=== PATIENT | female | born 1975 | race Hispanic/Latino ===

== ENCOUNTER 2019-01-29 15:07 | Emergency (ER) | payer OTHER ==
--- NOTE | 2019-01-29 16:41 | RAD REPORT ---
EXAM DESCRIPTION: RAD - Ankle Right 3 View - 01/29/2019 4:21 pm CLINICAL HISTORY: Pain;Swelling COMPARISON: <Comparisons> FINDINGS: Moderate soft tissue swelling is seen along the lateral malleolus. No acute fracture or di slocation identified.
--- NOTE | 2019-01-29 16:58 | ER ---
Nurse's Notes [facility] Name: Teresa Eugene Age: 43 yrs Sex: Female : 1975 Arrival Date: 01/29/2019 Time: 15:12 Bed 10 Private MD: Diagnosis: Sprain of unspecified ligament of right ankle Presentation: 01/29 15:21 Presenting complaint: Patient states: tripped while walking down stairs 2 hours ago. Pt ss c/o R ankle and foot pain. Transition of care: patient was not received from another setting of care. Onset of symptoms was January 29, 2019. Risk Assessment: Do you want to hurt yourself or someone else? Patient reports no desire to harm self or others. Initial Sepsis Screen: Does the patient meet any 2 criteria? No. Patient's initial sepsis screen is negative. Does the patient have a suspected source of infection? No. Patient's initial sepsis screen is negative. Care prior to arrival: None. 15:21 Method Of Arrival: Ambulatory ss 15:21 Acuity: MIRI 4 ss Historical: - Allergies: 15:22 No Known Allergies; ss - Home Meds: 15:22 None [Active]; ss - PMHx: 15:22 None; ss - PSHx: 15:22 Appendectomy; ss - Immunization history:: Adult Immunizations unknown. - Social history:: Smoking status: Patient/guardian denies using tobacco. - Ebola Screening: : Patient denies exposure to infectious person Patient denies travel to an Ebola-affected area in the 21 days before illness onset. - Family history:: not pertinent. - Hospitalizations: : No recent hospitalization is reported. Screenin:27 Abuse screen: Denies threats or abuse. Denies injuries from another. Nutritional ss screening: No deficits noted. Tuberculosis screening: Never had TB. Fall Risk None identified. Assessment: 15:30 General: Appears in no apparent distress. comfortable, Behavior is calm, cooperative. ss Pain: Complains of pain in R ankle Pain currently is 5 out of 10 on a pain scale. Quality of pain is described as aching, tender, throbbing, Is continuous. Neuro: Level of Consciousness is awake, alert, obeys commands, Oriented to person, place, time, situation. Cardiovascular: Pulses are palpable in right radial artery, right posterior tibial artery, left radial artery and left posterior tibial artery. Respiratory: Airway is patent Respiratory effort is even, unlabored, Respiratory pattern is regular, symmetrical. GI: No signs and/or symptoms were reported involving the gastrointestinal system. EENT: Oral mucosa is moist. Throat is clear. Derm: Skin Skin is dry. Musculoskeletal: Circulation, motion, and sensation intact. Range of motion: intact in all extremities, Swelling present in R ankle. 17:27 Reassessment: Patient appears in no apparent distress at this time. Patient and/or ss family updated on plan of care and expected duration. Pain level reassessed. Patient is alert, oriented x 3, equal unlabored respirations, skin warm/dry/pink. Vital Signs: 15:22 BP 127 / 79; Pulse 73; Resp 16; Temp 99.0(TE); Pulse Ox 98% on R/A; Weight 65.77 kg; ss Height 5 ft. 1 in. (154.94 cm); Pain 5/10; 15:22 Body Mass Index 27.40 (65.77 kg, 154.94 cm) ED Course: 15:12 Patient arrived in ED. mr 15:22 Triage completed. ss 15:22 Arm band placed on right wrist. ss 15:30 Arnav Ureña MD is Attending Physician. rn 16:21 XRAY Ankle RIGHT 3 view In Process Unspecified. EDIL 17:12 Air stirrup applied to right ankle. 3 17:17 Elizabeth Yee, RN is Primary Nurse. 17:26 No provider procedures requiring assistance completed. Patient did not have IV access ss during this emergency room visit. 17:27 Patient has correct armband on for positive identification. Bed in low position. Call ss light in reach. Administered Medications: No medications were administered Outcome: 16:58 Discharge ordered by . rn 17:26 Discharged to home via wheelchair, with family. ss 17:26 Condition: good 17:26 Discharge instructions given to patient, family, Instructed on discharge instructions, follow up and referral plans. Demonstrated understanding of instructions, follow-up care, medications, splint care. 17:28 Patient left the ED. Signatures: Dispatcher [employer] SERGIOIL BrownKaylan hook mr Arnav Ureña MD MD rn Smirch, Shelby, RN RN Betsy Lay 3
--- NOTE | 2019-01-29 16:58 | EDPHYS ---
Physician Documentation [facility] Name: Teresa Eugene Age: 43 yrs Sex: Female : 1975 Arrival Date: 01/29/2019 Time: 15:12 Bed 10 Private MD: ED Physician Arnav Ureña HPI: 01/29 15:36 This 43 yrs old Female presents to ER via Ambulatory with complaints of Fall rn Injury, Ankle Injury. 15:36 Details of fall: The patient fell from a height, down approximately 4 stairs. Onset: rn The symptoms/episode began/occurred just prior to arrival. Associated injuries: The patient sustained right ankle, swelling. Severity of symptoms: At their worst the symptoms were moderate, in the emergency department the symptoms are unchanged. The patient has not experienced similar symptoms in the past. The patient has not recently seen a physician. Doesn't recall how it happened, was walking down steps in flat sandals, fell, no other injury, reports isolated pain to right lateral ankle.. Historical: - Allergies: 15:22 No Known Allergies; ss - Home Meds: 15:22 None [Active]; ss - PMHx: 15:22 None; ss - PSHx: 15:22 Appendectomy; ss - Immunization history:: Adult Immunizations unknown. - Social history:: Smoking status: Patient/guardian denies using tobacco. - Ebola Screening: : Patient denies exposure to infectious person Patient denies travel to an Ebola-affected area in the 21 days before illness onset. - Family history:: not pertinent. - Hospitalizations: : No recent hospitalization is reported. ROS: 15:36 Constitutional: Negative for fever, chills, and weight loss, MS/Extremity: + injury and rn swelling to right ankle Neuro: Negative for numbness/tingling of foot Exam: 15:36 Constitutional: This is a well developed, well nourished patient who is awake, alert, rn and in no acute distress. MS/ Extremity: Pulses equal, no cyanosis. + tender lateral right malleolus with ecchymosis and swelling, no tenderness at foot or medial malleolus. Vital Signs: 15:22 BP 127 / 79; Pulse 73; Resp 16; Temp 99.0(TE); Pulse Ox 98% on R/A; Weight 65.77 kg; ss Height 5 ft. 1 in. (154.94 cm); Pain 5/10; 15:22 Body Mass Index 27.40 (65.77 kg, 154.94 cm) ss MDM: 15:30 Patient medically screened. rn 16:55 Differential diagnosis: contusion, fracture. rn 16:55 Data reviewed: vital signs, nurses notes, radiologic studies, plain films, and as a rn result, I will discharge patient. Test interpretation: by ED physician or midlevel provider: plain radiologic studies, xray right ankle negative for acute fracture or dislocation.. Counseling: I had a detailed discussion with the patient and/or guardian regarding: the historical points, exam findings, and any diagnostic results supporting the discharge/admit diagnosis, radiology results, the need for outpatient follow up, to return to the emergency department if symptoms worsen or persist or if there are any questions or concerns that arise at home. Response to treatment: the patient's symptoms have mildly improved after treatment, and as a result, I will discharge patient. Special discussion: I discussed with the patient/guardian in detail that at this point there is no indication for admission to the hospital. It is understood, however, that if the symptoms persist or worsen the patient needs to return immediately for re-evaluation. 01/29 15:33 Order name: XRAY Ankle RIGHT 3 view; Complete Time: 16:53 rn 01/29 16:54 Order name: Splint: ankle velcro splint; Complete Time: 17:20 rn Administered Medications: No medications were administered Disposition: 01/29/19 16:58 Discharged to Home. Impression: Sprain of unspecified ligament of right ankle. - Condition is Stable. - Discharge Instructions: Ankle Sprain. - Medication Reconciliation Form, Thank You Letter, Antibiotic Education, Prescription Opioid Use form. - Follow up: Private Physician; When: As needed; Reason: Recheck today's complaints, Re-evaluation by your physician. - Problem is new. - Symptoms have improved. Signatures: Dispatcher [employer] EDMS Arnav Ureña MD MD rn Smirch, Shelby, RN RN ss Corrections: (The following items were deleted from the chart) 17:28 16:58 01/29/2019 16:58 Discharged to Home. Impression: Sprain of unspecified ligament ss of right ankle. Condition is Stable. Forms are Medication Reconciliation Form, Thank You Letter, Antibiotic Education, Prescription Opioid Use. Follow up: Private Physician; When: As needed; Reason: Recheck today's complaints, Re-evaluation by your physician. Problem is new. Symptoms have improved. rn
== END 2019-01-29 17:28 | disposition home or self-care (01) ==
LOC: ER 15:07
DX: S93.401A Sprain of unspecified ligament of right ankle, initial encounter (principal); W10.9XXA Fall (on) (from) unspecified stairs and steps, initial encounter
CPT/HCPCS: 99283

== ENCOUNTER 2019-10-18 16:55 | Emergency (ER) | payer OTHER ==
[2019-10-18] MEDS ORDERED: FLUORESCEIN SODIUM 1 MG/WRAP ONE (18:28)
[2019-10-18] MEDS ORDERED: TETRACAINE HCL 0.5% 4ML OPTH ONE (18:28)
--- NOTE | 2019-10-18 18:38 | ER ---
Nurse's Notes [facility] Name: Teresa Eugene Age: 44 yrs Sex: Female : 1975 Arrival Date: 10/18/2019 Time: 17:00 Bed 17 Private MD: Diagnosis: Conjunctival hemorrhage, right eye Presentation: 10/17 17:07 Chief complaint: Patient states: "I had an eye injury at work yesterday. My lanyard ss flipped up and caught my eye. It doesn't hurt, but it feels irritated.". Coronavirus screen: The patient has NOT traveled to a country currently being monitored by the [facility] within the last 14 days. Proceed with normal triage procedures. The patient has NOT had contact with any known and/or suspected case of coronavirus. Proceed with normal triage procedures. Ebola Screen: Patient denies exposure to infectious person. Patient denies travel to an Ebola-affected area in the 21 days before illness onset. Mechanism of Injury: SEE TRIAGE NOTE. The patient denies any loss of vision. Initial Sepsis Screen: Does the patient meet any 2 criteria? No. Patient's initial sepsis screen is negative. Does the patient have a suspected source of infection? No. Patient's initial sepsis screen is negative. Risk Assessment: Do you want to hurt yourself or someone else? Patient reports no desire to harm self or others. 17:07 Method Of Arrival: Ambulatory ss 17:07 Acuity: MIRI 4 ss Historical: - Allergies: 17:10 No Known Allergies; ss - Home Meds: 17:10 None [Active]; ss - PMHx: 17:10 None; ss - PSHx: 17:10 Appendectomy; ss - Immunization history:: Adult Immunizations up to date. - Social history:: Smoking status: Patient denies any tobacco usage or history of. Screenin:25 Abuse screen: Denies threats or abuse. Nutritional screening: No deficits noted. em Tuberculosis screening: No symptoms or risk factors identified. Fall Risk None identified. Assessment: 18:25 General: Appears in no apparent distress. comfortable, Behavior is calm, cooperative. em Pain: Denies pain. Neuro: Level of Consciousness is awake, alert, obeys commands, Oriented to person, place, time, situation, Appropriate for age. Cardiovascular: Capillary refill < 3 seconds Patient's skin is warm and dry. Respiratory: Airway is patent Respiratory effort is even, unlabored, Respiratory pattern is regular, symmetrical. EENT: Eyes normal . Sclera/Cornea are reddened in inner aspect of conjuctiva of right eye. Derm: Skin is intact, is healthy with good turgor, Skin is pink, warm \\T\\ dry. Musculoskeletal: Capillary refill < 3 seconds, Range of motion: intact in all extremities. Vital Signs: 17:07 BP 123 / 88; Pulse 71; Resp 15; Temp 98.1(TE); Pulse Ox 99% on R/A; Weight 68.04 kg; ss Height 5 ft. 1 in. (154.94 cm); Pain 0/10; 17:07 Body Mass Index 28.34 (68.04 kg, 154.94 cm) ss Visual Acuity: 18:30 Left Eye Visual acuity 20/200, ; Right Eye Visual acuity 20/15, ; Both Eyes Visual em acuity 20/15; With Lenses; ED Course: 17:00 Patient arrived in ED. mr 17:09 Triage completed. ss 17:10 Arm band placed on right wrist. ss 17:54 Carlo Savage FNP-C is PHCP. la1 17:54 Marbin Leonard MD is Attending Physician. la1 18:21 Doe Proctor, RN is Primary Nurse. em 18:25 Patient has correct armband on for positive identification. Placed in gown. Bed in low em position. Call light in reach. 18:25 No provider procedures requiring assistance completed. Patient did not have IV access em during this emergency room visit. Administered Medications: 18:30 Drug: Tetracaine Drops 0.5 % 1 drops Route: Ophthalmic; Site: right eye; em 18:57 Follow up: Response: No adverse reaction em 18:30 Drug: Fluorescein Strip 1 strip Route: Ophthalmic; Site: right eye; em 18:57 Follow up: Response: No adverse reaction em Outcome: 18:37 Discharge ordered by . la1 18:57 Discharged to home ambulatory. em 18:57 Condition: good 18:57 Discharge instructions given to patient, Instructed on discharge instructions, follow up and referral plans. medication usage, Demonstrated understanding of instructions, follow-up care, medications, Prescriptions given X 1. 18:59 Patient left the ED. em Signatures: BrownKaylan hook Edgar, RN RN Elizabeth Zaman, RN RN ss Janette, Carlo, PROGRAM PRODUCTION SPECIALIST-C PROGRAM PRODUCTION SPECIALIST-Cla1
--- NOTE | 2019-10-18 18:38 | EDPHYS ---
Physician Documentation [facility] Name: Teresa Eugene Age: 44 yrs Sex: Female : 1975 Arrival Date: 10/18/2019 Time: 17:00 Bed 17 Private MD: ED Physician Marbin Leonard HPI: 10/17 18:33 This 44 yrs old Female presents to ER via Ambulatory with complaints of Eye la1 Injury. 18:33 The patient is experiencing pain, redness, The patient sustained a scratch, to the la1 right eye, caused by lanyard. Onset: The symptoms/episode began/occurred yesterday. Duration: the symptoms are continuous. Aggravated by nothing. Alleviated by nothing. Associated signs and symptoms: Pertinent negatives: fever. Patient does not utilize any form of vision correction. Severity of symptoms: At their worst the symptoms were very mild. The patient has not experienced similar symptoms in the past. Historical: - Allergies: 17:10 No Known Allergies; ss - Home Meds: 17:10 None [Active]; ss - PMHx: 17:10 None; ss - PSHx: 17:10 Appendectomy; ss - Immunization history:: Adult Immunizations up to date. - Social history:: Smoking status: Patient denies any tobacco usage or history of. ROS: 18:34 Constitutional: Negative for fever, chills, and weight loss. la1 18:34 ENT: Negative for injury, pain, and discharge, Neck: Negative for injury, pain, and swelling, Cardiovascular: Negative for chest pain, palpitations, and edema, Respiratory: Negative for shortness of breath, cough, wheezing, and pleuritic chest pain, Abdomen/GI: Negative for abdominal pain, nausea, vomiting, diarrhea, and constipation, Back: Negative for injury and pain, : Negative for injury, bleeding, discharge, and swelling, MS/Extremity: Negative for injury and deformity, Skin: Negative for injury, rash, and discoloration, Neuro: Negative for headache, weakness, numbness, tingling, and seizure. 18:34 Eyes: Positive for pain, redness, of the inner aspect of conjuctiva of right eye. Exam: 18:35 Visual Acuity: I have reviewed the nursing documentation. la1 18:35 Constitutional: This is a well developed, well nourished patient who is awake, alert, and in no acute distress. Head/Face: Normocephalic, atraumatic. ENT: Mucous membranes moist. Neck: Trachea midline, Skin: Warm, dry with normal turgor. Normal color with no rashes, no lesions, and no evidence of cellulitis. MS/ Extremity: Pulses equal, no cyanosis. Neurovascular intact. Full, normal range of motion. 18:35 Eyes: Periorbital structures: appear normal, Pupils: equal, round, and reactive to light and accomodation, Extraocular movements: intact throughout, Conjunctiva: subconjunctival hemorrhage(s), seen in the right eye, at 3 o'clock, Corneas: are normal, abrasion, is not appreciated, a fluorescein strip employed to appreciate the findings. Vital Signs: 17:07 BP 123 / 88; Pulse 71; Resp 15; Temp 98.1(TE); Pulse Ox 99% on R/A; Weight 68.04 kg; ss Height 5 ft. 1 in. (154.94 cm); Pain 0/10; 17:07 Body Mass Index 28.34 (68.04 kg, 154.94 cm) ss Visual Acuity: 18:30 Left Eye Visual acuity 20/200, ; Right Eye Visual acuity 20/15, ; Both Eyes Visual em acuity 20/15; With Lenses; MDM: 18:12 Patient medically screened. la1 18:35 Data reviewed: vital signs, nurses notes, I have discussed the patient's la1 presentation/case with the attending Emergency Department Physician; and as a result, I will discharge patient. Data interpreted: Pulse oximetry: on room air is 99 %. Interpretation: normal. Counseling: I had a detailed discussion with the patient and/or guardian regarding: the historical points, exam findings, and any diagnostic results supporting the discharge/admit diagnosis, the need for outpatient follow up, an opthalmologist. Special discussion: Based on the history and exam findings, there is no indication for further emergent testing or inpatient evaluation. I discussed with the patient/guardian the need to see the opthamologist for further evaluation of the symptoms. 10/17 18:13 Order name: Visual Acuity; Complete Time: 18:38 la1 10/17 18:13 Order name: Eye Tray; Complete Time: 18:38 la1 Administered Medications: 18:30 Drug: Tetracaine Drops 0.5 % 1 drops Route: Ophthalmic; Site: right eye; em 18:57 Follow up: Response: No adverse reaction em 18:30 Drug: Fluorescein Strip 1 strip Route: Ophthalmic; Site: right eye; em 18:57 Follow up: Response: No adverse reaction em Disposition: 10/18 07:04 Co-signature as Attending Physician, Marbin Leonard MD I agree with the assessment and kdr plan of care. Disposition: 10/18/19 18:37 Discharged to Home. Impression: Conjunctival hemorrhage, right eye. - Condition is Stable. - Discharge Instructions: Corneal Abrasion, Subconjunctival Hemorrhage. - Prescriptions for ciprofloxacin HCl 0.3 % Ophthalmic drops - instill 4 drop by OPHTHALMIC route every 4-6 hours for 3 days; 1 bottle. - Medication Reconciliation Form, Thank You Letter, Antibiotic Education form. - Follow up: Private Physician; When: 2 - 3 days; Reason: Recheck today's complaints, Re-evaluation by your physician. - Problem is new. - Symptoms have improved. Signatures: Marbin Leonard MD MD [facility] Doe Proctor, RN RN Elizabeth Yee RN RN ss Carlo Savage, ABSTRACTOR-C ABSTRACTOR-Cla1 Corrections: (The following items were deleted from the chart) 03 18:59 18:37 10/18/2019 18:37 Discharged to Home. Impression: Conjunctival hemorrhage, right em eye. Condition is Stable. Forms are Medication Reconciliation Form, Thank You Letter, Antibiotic Education, Prescription Opioid Use. Follow up: Private Physician; When: 2 - 3 days; Reason: Recheck today's complaints, Re-evaluation by your physician. Problem is new. Symptoms have improved. la1
[2019-10-18 19:26] VITALS: BP 123/88; TEMP 98.1; O2SAT 99
== END 2019-10-18 18:59 | disposition home or self-care (01) ==
LOC: ER 16:55
DX: H11.31 Conjunctival hemorrhage, right eye (principal)
CPT/HCPCS: 99283